=== PATIENT | male | born 1985 | race Caucasian/White ===

== ENCOUNTER 2016-07-26 12:36 | Emergency (ER) | payer MEDICAID ==
[~2016-07-26] VITALS: Ht 170.2 cm; Wt 85.0 kg
[2016-07-26 13:22] VITALS: Ht 170.2 cm; Wt 85.0 kg
--- NOTE | 2016-07-26 15:34 | ERD ---
ER Documentation Chief Complaint Date/Time DATE: 07/26/16 TIME: 15:31 Chief Complaint LEFT ANKLE PAIN,SWELLING.FELL FROM THE STAIRS. DEIDRA DAWSON 31-year-old male who presents to the ED with left ankle and foot pain after sustaining a fall yesterday. He states that he was going down the stairs and missed the last stepatient is in his ankle inverted. He denies radiation of pain. He states that the pain is located on his bilateral malleoli and his foot. Denies numbness or tingling. He is able to ambulate but does have pain when he applies pressure. No proximal fibula pain. States has taken Tylenol for his symptoms. Denies chest pain, cough, shortness of breath or difficulty breathing. Denies headache or dizziness. Denies passing out or losing consciousness or blacking out. No other complaints. ROS All systems reviewed and are negative except as per history of present illness. Medications Home Meds Active Scripts Naproxen* (Naprosyn*) 500 Mg Tablet, 500 MG PO BID Y for PAIN AND/OR INFLAMMATION, #30 TAB Prov:MARYAN LOYOLA PA-C 07/26/16 Allergies Allergies: Coded Allergies: No Known Allergy (Unverified , 12/13/11) PMhx/Soc History of Surgery: No Anesthesia Reaction: No Hx Neurological Disorder: No Hx Respiratory Disorders: No Hx Cardiac Disorders: No Hx Psychiatric Problems: No Hx Miscellaneous Medical Probl: No Hx Alcohol Use: No Hx Substance Use: No Hx Tobacco Use: No Physical Exam Vitals Vital Signs Date Time Temp Pulse Resp B/P Pulse Ox O2 Delivery O2 Flow Rate FiO2 07/26/16 13:22 98.3 76 18 135/70 98 Physical Exam GENERAL: Well-developed, well-nourished male. Appears in no acute distress. HEART: Regular rate and rhythm. No murmurs, rubs or gallops. Extremities: Equal pulses bilaterally. No peripheral clubbing, cyanosis or edema. No unilateral leg swelling. Tenderness to base of the fifth metatarsal and bilateral malleoli.. No open wounds, deformities or step offs. No laceration. No signs of infection. Pulses intact bilaterally. Non tender to proximal fibular. Sensation intact bilaterally. Negative Emily sign. dorsiflexion, extension, inversion and eversion intact bilaterally. No erythema. NEUROLOGIC: Alert and oriented. Moving all four extremities. 5/5 strength in all extremities. Normal speech. Steady gait. SKIN: Normal color. Warm and dry. No rashes or lesions. Capillary refill < 2 seconds Procedures/MDM ER COURSE: I kept the patient and/or family informed of laboratory and diagnostic imaging results throughout the emergency room course. IMAGING STUDIES [place] [id number] Radiology Main Line: [phone] DIAGNOSTIC IMAGING REPORT Patient: MARTA RIVERO : 1985 Age: 31 Sex: M MR #: [id number] DOS: 07/26/16 1529 Ordering MD: MARYAN LOYOLA PA-C Location: [facility] Room/Bed: PROCEDURE: XR Left Ankle. CLINICAL INDICATION: Pain. TECHNIQUE: AP, oblique and lateral views of the left ankle were performed. COMPARISON: None. FINDINGS: There is soft tissue swelling over the lateral malleolus. There is a plantar spur off of the os calcaneus. Ankle mortise and bony elements appear intact. IMPRESSION: 1. There is no evidence of an acute fracture. 2. Plantar spur off of the os calcaneus. 3. Soft tissue swelling adjacent to the lateral malleolus. RPTAT:AAJJ Physician Deny Date Time Electronically viewed and signed by Barrington De Leon Physician on 07/26/2016 16:15 JM/ CC: MARYAN LOYOLA PA-C [place] [id number] Radiology Main Line: [phone] DIAGNOSTIC IMAGING REPORT Patient: MARTA RIVERO : 1985 Age: 31 Sex: M MR #: [id number] DOS: 07/26/16 1529 Ordering MD: MARYAN LOYOLA PA-C Location: [facility] Room/Bed: PROCEDURE: XR Left Foot. CLINICAL INDICATION: Left foot pain. TECHNIQUE: Three views. Frontal, lateral, and oblique. COMPARISON: None. FINDINGS: There is no fracture or dislocation. The soft tissues are normal. There is a small plantar calcaneal spur. There is no lytic or blastic lesion. There is no radiopaque foreign body. IMPRESSION: 1. Small plantar calcaneal spur. 2. Otherwise normal images of the left foot. RPTAT: QQ .Michele Gr MD, MD Date Time Electronically viewed and signed by .Michele Gr MD, on 07/26/2016 16:35 .R/ CC: MARYAN LOYOLA PA-Lior PROCEDURES Loc wrap. [Loc wrap Assessment: Neurovascularly intact post loc wrap placement with good fit.] Patient's extremity symptoms have stabilized while they have been evaluated in the department and are appropriate for outpatient follow up. MEDICAL DECISION MAKING: This is a 31-year-old male who presents with left ankle pain. Vital signs were reviewed. Patient is afebrile. Patient is not hypoxic. Patient is not toxic or ill-appearing. Patient likely has an ankle sprain versus strain. Low suspicion for dislocation, fracture, septic joint, compartment syndrome, osteomyelitis, cellulitis, avascular necrosis, neurological injury, vascular injury, tendon laceration. DISCHARGE: At this time, patient is stable for discharge and outpatient management with no new complaints during the ER course. Patient was sent home with Loc wrap, crutches and a copy of his imaging studies and Naprosyn for pain. Advised patient to do our ICE.. Patient will be discharged home with instructions to recheck for new or worsening symptoms such as fever, nausea, weakness, LOC and to follow up with primary care in the next 1-2 days. Patient was advised to return to the ER for any new or worsening symptoms. Plan was discussed and patient and/or family understands and agrees. Home instructions were given. Departure Diagnosis: Primary Impression: Ankle pain Laterality: left Chronicity: acute Qualified Code: M25.572 - Acute left ankle pain Condition: Stable MARYAN LOYOLA PA-C Jul 26, 2016 15:34
[2016-07-26] MEDS ORDERED: NAPR-260 PO (15:38)
--- NOTE | 2016-07-26 16:15 | RADRPT ---
PROCEDURE: XR Left Ankle. CLINICAL INDICATION: Pain. TECHNIQUE: AP, oblique and lateral views of the left ankle were performed. COMPARISON: None. FINDINGS: There is soft tissue swelling over the lateral malleolus. There is a plantar spur off of the os calcaneus. Ankle mortise and bony elements appear intact. IMPRESSION: 1. There is no evidence of an acute fracture. 2. Plantar spur off of the os calcaneus. 3. Soft tissue swelling adjacent to the lateral malleolus. RPTAT:AAJJ Physician Deny Date Time Electronically viewed and signed by Barrington De Leon Physician on 07/26/2016 16:15 /
--- NOTE | 2016-07-26 16:35 | RADRPT ---
PROCEDURE: XR Left Foot. CLINICAL INDICATION: Left foot pain. TECHNIQUE: Three views. Frontal, lateral, and oblique. COMPARISON: None. FINDINGS: There is no fracture or dislocation. The soft tissues are normal. There is a small plantar calcaneal spur. There is no lytic or blastic lesion. There is no radiopaque foreign body. IMPRESSION: 1. Small plantar calcaneal spur. 2. Otherwise normal images of the left foot. RPTAT: QQ .Michele Gr MD, Date Time Electronically viewed and signed by .Michele Gr MD, on 07/26/2016 16:35 .R/
== END 2016-07-26 16:28 | disposition home or self-care (01) ==
LOC: FTE 12:36
DX: M25.572 Pain in left ankle and joints of left foot (principal)
CPT/HCPCS: 73610; 73630; Z7502